=== PATIENT | female | born 1970 | race Caucasian/White ===

== ENCOUNTER 2022-03-30 01:32 | Inpatient (IN) ==
[2022-03-30] MEDS ORDERED: SODIUM CHLORIDE 0.9% 1,000 ML IV STA (02:04)
[2022-03-30] MEDS ORDERED: ONDANSETRON 4 MG/2 ML VIAL IV STA (02:04)
[2022-03-30] MEDS ORDERED: ALBUTEROL/IPRATROPIUM 3 ML NEB RESP TX STA (02:04)
[2022-03-30] MEDS ORDERED: ASPIRIN 325 MG TABLET PO STA (02:04)
[2022-03-30 02:26] LABS: Basophils % 0.5 % (0.0-0.8); Eosinophils % 0.5 % (0.00-10.9); Hematocrit 41.8 VOL% (35.7-47.0); Hemoglobin 13.1 GM/DL (12.0-16.0); Immature Granulocytes % 0.3 %; Immature Granulocytes Absolute 0.01 #; Lymphocytes # 0.3 10*3/uL (1.4-4.0); Lymphocytes % 6.7 % (21.3-54.2); Mean Corpuscular HGB Conc 31.3 GM/DL (32-36); Mean Corpuscular Volume 103.5 FL (87-102); Mean Platelet Volume 9.5 FL (9.6-12.0); Monocytes % 1.1 % (1.7-12.7); Neutrophils % 90.9 % (38.7-73.9); Platelet Count 220 T/CUMM (130-400); Red Blood Count 4.04 MC/CUMM (3.8-5.5); Red Cell Distribution Width 14.6 % (9.3-17.3); White Blood Count 3.8 T/CUMM (4-12)
[2022-03-30 02:30] LABS: Arterial Base Excess iSTAT -7 MMOL/L (-2.5-2.5); Arterial Bicarbonate iSTAT 18.1 MMOL/L (20-26); Arterial O2 Saturation iSTAT 94 % (95-100); Arterial PCO2 iSTAT 35 MM HG (35-48); Arterial PO2 iSTAT 77 MM HG (80-95); Arterial Total CO2 iSTAT 19 MMO/L (23-27); Arterial pH iSTAT 7.317 (7.35-7.45)
[2022-03-30 02:39] LABS: INR 0.9; PT Patient Result 10.3 SECS (10.5-12.0); Partial Thromboplastin Time 26.2 SECS (23.8-32.1)
[2022-03-30] MEDS ORDERED: ENOXAPARIN 100 MG/ML SYRINGE SUBCUT STA (02:39)
[2022-03-30] MEDS ORDERED: methylPREDNISolone SOD SUC INJ 125 MG in SODIUM CHLORIDE 0.9% 100 ML IV STA ×2 (02:39→02:41)
[2022-03-30] MEDS ORDERED: methylPREDNISolone SOD SUC 125 MG/2 ML VIAL IV STA (02:40)
[2022-03-30 02:47] LABS: Lymphocytes 12 % (20-55); Platelet Estimate Adequate; Total Cells Counted 100
[2022-03-30 02:54] LABS: Albumin 3.6 G/DL (3.4-5.0); Bilirubin,Total 0.6 MG/DL (0.20-1.00); Osmolality,Calculated 283.1 MOS/KG (273-304); Potassium 3.2 MMOL/L (3.5-5.1); Total Protein 7.2 G/DL (6.4-8.2)
[2022-03-30] MEDS ORDERED: MAGNESIUM SULF RIDER 2 GM/50 ML PREMIX IV STA (03:03)
[2022-03-30] MEDS ORDERED: POTASSIUM CHLORIDE 20 MEQ TABLET PO STA (03:03)
[2022-03-30 03:44] LABS: Barbiturates Screen,Urine Negative (Negative); Benzodiazepines Screen,Urine Positive (Negative); Cannabinoid Screen,Urine Negative (Negative); Opiate Screen,Urine Negative (Negative); Phencyclidine Screen,Urine Negative (Negative)
[2022-03-30] MEDS ORDERED: ACETAMINOPHEN 325 MG TABLET PO PRN (05:15)
[2022-03-30] MEDS ORDERED: GLUCAGON 1 MG VIAL IM PRN (05:15)
[2022-03-30] MEDS ORDERED: ONDANSETRON 4 MG/2 ML VIAL IV PRN (05:15)
[2022-03-30] MEDS ORDERED: MAGNESIUM SULF RIDER 4 GM/100 ML PREMIX IV PRN (05:22)
[2022-03-30] MEDS ORDERED: POTASSIUM CHLORIDE 20 MEQ TABLET PO PRN (05:22)
[2022-03-30] MEDS ORDERED: POTASSIUM CHLORIDE RIDER 10 MEQ/100 ML PREMIX IV PRN (05:22)
[2022-03-30] MEDS ORDERED: MAGNESIUM SULF RIDER 2 GM/50 ML PREMIX IV PRN (05:22)
[2022-03-30] MEDS ORDERED: DEXTROSE 10% 250 ML BAG IV PRN (05:27)
[2022-03-30] MEDS ORDERED: LEVOFLOXACIN INJ 750 MG/150 ML PREMIX IV SCH (06:00)
[2022-03-30] MEDS ORDERED: HydrOXYzine PAMOATE 25 MG CAPSULE PO PRN (06:28)
[2022-03-30] MEDS ORDERED: HYDROCORTISONE 1% CREAM 28 GM TUBE TOP PRN (06:41)
[2022-03-30] MEDS: SODIUM CHLORIDE 0.45% 1,000 ML IV SCH (07:12)
[2022-03-30] MEDS: ALBUTEROL/IPRATROPIUM 3 ML NEB RESP TX SCH ×3 (07:18→19:45)
[2022-03-30] MEDS: ESTRADIOL 1 MG TABLET PO SCH ×2 (08:46→20:45)
[2022-03-30] MEDS: DICLOFENAC SODIUM 50 MG TABLET PO SCH ×2 (08:46→20:45)
[2022-03-30] MEDS: clonazePAM 0.5 MG TABLET PO SCH ×2 (08:47→20:45)
[2022-03-30] MEDS: ATORVASTATIN 40 MG TABLET PO SCH (08:47)
[2022-03-30] MEDS: AMITRIPTYLINE 100 MG TABLET PO SCH ×2 (08:47→09:15)
[2022-03-30] MEDS: SERTRALINE 100 MG TABLET PO SCH (08:47)
[2022-03-30] MEDS: methylPREDNISolone SOD SUC 40 MG/1 ML VIAL IV SCH ×3 (08:47→20:45)
[2022-03-30] MEDS: PROPRANOLOL 40 MG TABLET PO SCH ×2 (08:47→20:45)
[2022-03-30] MEDS: PANTOPRAZOLE 40 MG TABLET PO SCH (08:47)
[2022-03-30] MEDS: DOCUSATE SODIUM 100 MG CAPSULE PO SCH ×2 (08:58→20:45)
[2022-03-30 09:03] LABS: Free T4 (Free Thyroxine) 1.03 NG/DL (0.76-1.46)
[2022-03-30] MEDS ORDERED: BENZONATATE 100 MG CAPSULE PO PRN (13:09)
[2022-03-30] MEDS ORDERED: AMITRIPTYLINE 100 MG TABLET PO SCH (21:00)
[2022-03-30] MEDS ORDERED: RIZATRIPTAN ODT 5 MG TABLET PO PRN (23:30)
[2022-03-31] MEDS: ALBUTEROL/IPRATROPIUM 3 ML NEB RESP TX SCH ×2 (01:20→07:25)
[2022-03-31] MEDS: methylPREDNISolone SOD SUC 40 MG/1 ML VIAL IV SCH ×2 (03:30→08:57)
[2022-03-31] MEDS: SODIUM CHLORIDE 0.45% 1,000 ML IV SCH (03:46)
[2022-03-31 05:20] LABS: Albumin 2.7 G/DL (3.4-5.0); Bilirubin,Total 0.5 MG/DL (0.20-1.00); Calcium 8.4 MG/DL (8.5-10.1); Osmolality,Calculated 276.8 MOS/KG (273-304); Potassium 3.7 MMOL/L (3.5-5.1)
[2022-03-31 07:53] LABS: Basophils % 0.1 % (0.0-0.8); Eosinophils # 0.1 10*3/uL (0.0-0.87); Eosinophils % 0.5 % (0.00-10.9); Hematocrit 29.7 VOL% (35.7-47.0); Hemoglobin 9.5 GM/DL (12.0-16.0); Immature Granulocytes % 0.5 %; Immature Granulocytes Absolute 0.05 #; Lymphocytes # 0.3 10*3/uL (1.4-4.0); Lymphocytes % 2.7 % (21.3-54.2); Mean Corpuscular Volume 102.1 FL (87-102); Mean Platelet Volume 10.2 FL (9.6-12.0); Monocytes # 0.3 10*3/uL (0.11-0.8); Monocytes % 2.8 % (1.7-12.7); Neutrophils % 93.4 % (38.7-73.9); Platelet Count 214 T/CUMM (130-400); Red Blood Count 2.91 MC/CUMM (3.8-5.5); Red Cell Distribution Width 14.6 % (9.3-17.3); White Blood Count 10.7 T/CUMM (4-12)
[2022-03-31 08:11] LABS: Band Neutrophils 3 % (0-10); Lymphocytes 2 % (20-55); Platelet Estimate Adequate; Total Cells Counted 100
[2022-03-31] MEDS: PROPRANOLOL 40 MG TABLET PO SCH (08:58)
[2022-03-31] MEDS: clonazePAM 0.5 MG TABLET PO SCH (08:58)
[2022-03-31] MEDS: DICLOFENAC SODIUM 50 MG TABLET PO SCH (08:58)
[2022-03-31] MEDS: ESTRADIOL 1 MG TABLET PO SCH (08:58)
[2022-03-31] MEDS: PANTOPRAZOLE 40 MG TABLET PO SCH (08:59)
[2022-03-31] MEDS: ATORVASTATIN 40 MG TABLET PO SCH (08:59)
[2022-03-31] MEDS: SERTRALINE 100 MG TABLET PO SCH (08:59)
[2022-03-31] MEDS: DOCUSATE SODIUM 100 MG CAPSULE PO SCH (08:59)
[2022-03-31] MEDS ORDERED: ENOXAPARIN 40 MG/0.4 ML SYRINGE SUBCUT SCH (09:00)
[2022-03-31 12:16] VITALS: BP 99/59
[2022-03-31] MEDS ORDERED: FLUTICASONE 50 MCG NASAL SPRAY 16 GM BOTTLE BOTH NARES SCH (15:00)
[2022-03-31] MEDS ORDERED: LORATADINE 10 MG TABLET PO SCH (15:00)
[2022-04-01 13:16] LABS: Ehrlichia Chaffeensis (HME)IgG <1:64 titer (<1:64)
== END 2022-03-31 13:52 | disposition home or self-care (01) | DRG 194 ==
LOC: N.ED 01:32 → N.EDINP 05:15 → N.5E 06:13
PROVIDERS: ADMIT Internal Medicine; ATTEND Internal Medicine